=== PATIENT | female | born 1985 | race African-American/Black ===

== ENCOUNTER 2023-02-18 08:00 | Outpatient (CLI) | payer OTHER ==
[2023-02-18 16:39] LABS: BILIRUBIN,URINE NEGATIVE (NEGATIVE); GLUCOSE, URINE (UA) NEGATIVE (NEGATIVE); KETONES,URINE (UA) NEGATIVE (NEGATIVE); LEUKOCYTE ESTERASE, URINE NEGATIVE (NEGATIVE); NITRITE,URINE NEGATIVE (NEGATIVE); OCCULT BLOOD,URINE NEGATIVE (NEGATIVE); PH,URINE 5.5 PH (5.0-7.5); PROTEIN,URINE NEGATIVE (NEGATIVE); UROBILINOGEN,URINE 0.2 (NORMAL) E.U./dL (NORMAL)
[2023-02-18 16:50] LABS: CLARITY,URINE HAZY (CLEAR)
[2023-02-18 17:00] LABS: AMORPHOUS SEDIMENT,UR Marked /LPF; BACTERIA,URINE None Seen /HPF (None Seen); RBC,URINE None Seen /HPF (0-5); SQUAMOUS EPITHELIAL CELL,UR NONE SEEN (<= Few); WBC,URINE 0-3 /HPF (0-5)
== END 2023-02-18 23:59 | disposition home or self-care (01) ==
LOC: LAB.WC 08:00
PROVIDERS: ATTEND Obstetrics & Gynecology
DX: Z34.90 Encounter for supervision of normal pregnancy, unspecified, unspecified trimester (principal)
CPT/HCPCS: 81001; 87086

== ENCOUNTER 2023-02-19 08:00 | Outpatient (CLI) | payer OTHER ==
[2023-02-19 08:11] LABS: BASOPHILS % (AUTO) 0.7 %; EOSINOPHILS # (AUTO) 0.1 10^3/uL (0.0-0.7); HCT - HEMATOCRIT 36.4 % (37.0-47.0); LYMPHOCYTES # (AUTO) 1.8 10^3/uL (1.5-3.5); LYMPHOCYTES % (AUTO) 39.4 %; MEAN CORPUSCULAR HEMOGLOBIN 31.2 pg (27.0-31.0); MEAN CORPUSCULAR VOLUME 94.5 fL (81.0-99.0); MEAN PLATELET VOLUME 10.7 fL (7.9-10.8); MONOCYTES # (AUTO) 0.5 10^3/uL (0.0-1.0); MONOCYTES % (AUTO) 10.2 %; NEUTROPHILS # (AUTO) 2.2 10^3/uL (1.5-6.6); NEUTROPHILS % (AUTO) 47.7 %; PLT - PLATELET COUNT 216 10^3/uL (130-450); RED BLOOD COUNT 3.85 10^6/uL (4.20-5.40); RED CELL DISTRIBUTION WIDTH 12.3 % (12.0-15.0); WHITE BLOOD COUNT 4.6 x10^3/uL (4.8-10.8)
[2023-02-20 12:08] LABS: HIV SCREEN 4TH GENERATION Non Reactive (Non Reactive)
[2023-02-21 01:06] LABS: HCV AB Non Reactive (Non Reactive)
[2023-02-21 08:09] LABS: HBsAG SCREEN Negative (Negative); VARICELLA-ZOSTER AB IGG 2789 index (Immune >165)
[2023-02-22 04:08] LABS: RPR Non Reactive (Non Reactive)
== END 2023-02-19 23:59 | disposition home or self-care (01) ==
LOC: LAB.WC 08:00
PROVIDERS: ATTEND Obstetrics & Gynecology
DX: Z34.90 Encounter for supervision of normal pregnancy, unspecified, unspecified trimester (principal)
CPT/HCPCS: 36415; 85025; 86592; 86762; 86787; 86803; 86850; 86900; 86901; 87340; 87389

== ENCOUNTER 2023-02-19 09:36 | Outpatient (CLI) | payer OTHER ==
--- NOTE | 2023-02-19 09:46 | PROVIDER PROGRESS NOTE ---
- HPI Chief Complaint: Other Current : Patient is approximately 7 weeks . She started having bright red vaginal bleeding this morning. Patient reports recent intercourse. She has not yet had an ultrasound during the . - Exam : On speculum exam cervical irritation with small amount of bright red bleeding from cervix. - Procedures NST Procedure: No NST due to gestational age - Plan Plan: Ultrasound ordered for patient as outpatient. Advised patient to return for heavy vaginal bleeding soaking through 2-3 pads per hour or any other concerns. Patient has outpatient follow-up in office.
[2023-02-19 09:59] VITALS: BP 141/83
== END 2023-02-19 10:00 | disposition home or self-care (01) ==
LOC: WFO 09:36 → FBP 09:37 → WFO 10:00
PROVIDERS: ATTEND Obstetrics & Gynecology Obstetrics
DX: O20.9 Hemorrhage in early pregnancy, unspecified (principal); Z3A.01 Less than 8 weeks gestation of pregnancy
CPT/HCPCS: 36415; 84702; 85025; 86592; 86762; 86787; 86803; 86850; 86900; 86901; 87340; 87389; 99212; 99283; 99284

== ENCOUNTER 2023-02-19 10:06 | Emergency (ER) | payer OTHER ==
--- NOTE | 2023-02-19 10:30 | ED Physician Documentation ---
PD HPI FEMALE - Stated complaint Stated Complaint: SPOTTING - Chief complaint Chief Complaint: Abd Pain - History obtained from History obtained from: Patient - History of Present Illness Timing - onset: Today Timing - duration: Hours (onset of some blood per vagina noted when wiping after having urination this monring at work. Mild cramping lower abd.) Timing - details: Abrupt onset, Still present Associated symptoms: Pelvic pain (mild cramping), Vaginal bleeding. 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 denies: Vomiting, Diarrhea : denies: Dysuria, Frequency, Discharge Neurologic: denies: Generalized weakness, Near syncope PD PAST MEDICAL HISTORY - Past Medical History Past Medical History: No Cardiovascular: None Neuro: None Endocrine/Autoimmune: None - Past Surgical History Past Surgical History: Yes HEENT: Other - Present Medications Home Medications: Ambulatory Orders Medication Instructions Recorded Confirmed No Known Home Medications 02/19/23 02/19/23 - Allergies Allergies/Adverse Reactions: Allergies Allergy/AdvReac Type Severity Reaction Status Date / Time No Known Drug Allergies Allergy Verified 02/19/23 10:14 - Social History Does the pt smoke?: No Smoking Status: Never smoker Does the pt drink ETOH?: No Does the pt have substance abuse?: No - Immunizations Immunizations are current?: Yes - POLST Patient has POLST: No PD ED PE NORMAL - Vitals Vital signs reviewed: Yes - General General: Alert and oriented X 3, No acute distress, Well developed/nourished - Abdomen Abdomen: Soft, Non tender - Female Female : Deferred - Derm Derm: Normal color, Warm and dry Results - Vitals Vitals: Vital Signs - 24 hr 02/19/23 02/19/23 02/19/23 10:12 12:43 12:58 Temperature 36.7 C 36.5 C 36.1 C L Heart Rate 72 61 74 Respiratory 20 16 18 Rate Blood Pressure 166/107 H 164/72 H 149/96 H O2 Saturation 99 91 L 99 Oxygen O2 Source Room air - Labs Labs: Laboratory Tests 02/19/23 08:04 Beta HCG, Quant 132.4 - Rads (name of study) OB US Relevant Findings:: Prelim report reviewed (showing likely IUP 4-5 weeks size. uncertain viability due to dates. Small cyst right ovary, possible dermoid. No free fluid. ) PD Medical Decision Making - ED course Complexity details: reviewed results (very low quant HCG. US showing small ossible IUP 4-5 weeks, lower than expected dates. Concern for IUFD and impending miscarriage, but will need repeat HCG in 2-3 days to eval. ), considered differential (early with some cramping and vag bleeding small amount. Will get CBC, Quant HCG, blood type and OB US. ), d/w patient, d/w funeral pre need consultant (Dr. Dey, production leader [employer], who will see pt in the ER. ) Departure - Departure Disposition: 01 Home, Self Care Clinical Impression: Bleeding in early , Intrauterine Condition: Stable Record reviewed to determine appropriate education?: Yes Instructions: ED Miscarriage Poss Comments: Bleeding in early can be normal and fair percentage of pregnancies. However it can be indicative of a threatened miscarriage. At this point the ultrasound does show what appears to be an early intrauterine . It is too early to really identify heartbeat or such typically. We can follow the blood test hCG level with a repeat in 2 to 3 days to see if its going up appropriately versus down. Follow-up with the [employer] office. Stay well-hydrated. Off work today and rest. Tylenol or ibuprofen if needed for pains or cramps. Return if increased pain or significant increase bleeding fevers lightheadedness or other concerns. Forms: PCP List, Activity restrictions Discharge Date/Time: 02/19/23 12:58
--- NOTE | 2023-02-19 12:17 | Ultrasound Report ---
PROCEDURE: OB First Trimester w/TV INDICATIONS: early preg 7 wk EGA, vag bleeding OUTSIDE/PRIOR DATING DATA: Last menstrual period (LMP): 12/29/2022. LMP-based estimated date of delivery (STEPHANIE): 10/05/2023. First dating scan (date and location): 02/19/2023. Estimated date of delivery (STEPHANIE) from first dating scan: None. TECHNIQUE: Real-time scanning was performed of the fetus and maternal pelvic organs, with image documentation. Endovaginal scanning was also performed to better visualize the fetus and maternal ovaries. COMPARISON: None. FINDINGS: Possible intrauterine gestational sac is identified Mean gestational sac diameter measures 2.6 mm consistent with 5 weeks 0 days. Embryo: Not identified Heart rate: Absent bpm. Other: No perigestational fluid collection. Measurement variability in dating: +/- 4 weeks by LMP, +/- 7 days by mean sac diameter (use before 6 weeks gestation if crown-rump length not able to be measured), +/- 5 days by crown-rump length (6-12 weeks gestation). Maternal organs: Ovaries within the right ovary there is echogenic focus measuring 1 x 1.2 x 0.9 cm. IMPRESSION: Possible intrauterine of unknown viability with noncongruent dating from LMP. Right ovarian echogenic focus reflects possible small dermoid. This could be further delineated by no nemergent MRI if clinically warranted. Reviewed by: Juvenal Saxena MD on 02/19/2023 11:15 AM [facility] Approved by: Juvenal Saxena MD on 02/19/2023 11:15 AM [facility] Station ID: [id number]
[2023-02-19 13:04] VITALS: BP 149/96; O2SAT 99
--- NOTE | 2023-02-19 13:10 | PROVIDER PROGRESS NOTE ---
Subjective - Prog Note Date Prog Note Date: 02/19/23 - Subjective Subjective: Patient is approximately 7 weeks by last menstrual period who presented with vaginal bleeding that started this morning after intercourse. Patient concerned because bright red and has not had bleeding like this with previous pregnancies. Objective - Vital Signs/Intake & Output Reviewed Vital Signs: Yes Vital Signs: Vital Signs x48h Temp Pulse Resp BP Pulse Ox 02/19/23 12:58 97.0 F L 74 18 149/96 H 99 02/19/23 12:43 97.7 F 61 16 164/72 H 91 L 02/19/23 10:12 98.1 F 72 20 166/107 H 99 - Objective General Appearance: negative: No acute distress - Lab Results Other Labs: Lab Results x24hrs 02/19/23 Range/Units 08:04 Beta HCG, Quant 132.4 mIU/mL - Diagnostic Imaging Diagnostic Imaging Comments: hCG too low to determine intrauterine on ultrasound - Other Results/Comments Other Results/Comments: : Small amount of bright red blood in vaginal vault. Small amount of bleeding at cervical os. Assessment/Plan - Problem List (1) Bleeding in early Impression: Advised patient to return if soaking 2-3 pads per hour or any other concerns. Repeat quantitative hCG in 48 hours.
== END 2023-02-19 12:58 | disposition home or self-care (01) ==
LOC: ED 10:06
DX: O20.9 Hemorrhage in early pregnancy, unspecified (principal); Z3A.00 Weeks of gestation of pregnancy not specified
CPT/HCPCS: 36415; 84702; 85025; 86900; 86901; 99283; 99284

== ENCOUNTER 2023-02-22 07:50 | Outpatient (CLI) | payer OTHER | END 2023-02-22 07:51 | disposition home or self-care (01) | LOC: LAB 07:50 | PROVIDERS: ATTEND Nurse Practitioner | DX: O20.9 Hemorrhage in early pregnancy, unspecified (principal) | CPT/HCPCS: 36415; 84702 ==